=== PATIENT | female | born 1950 | race Hispanic/Latino ===

== ENCOUNTER 2020-09-19 17:23 | Emergency (ER) | payer MEDICARE ==
[~2020-09-19] VITALS: Ht 144.8 cm; Wt 52.2 kg
== END 2020-09-19 19:05 | disposition home or self-care (01) ==
LOC: FSED 17:45
DX: S83.92XA Sprain of unspecified site of left knee, initial encounter (principal); X50.1XXA Overexertion from prolonged static or awkward postures, initial encounter; Y92.008 Other place in unspecified non-institutional (private) residence as the place of occurrence of the external cause; I12.0 Hypertensive chronic kidney disease with stage 5 chronic kidney disease or end stage renal disease; E11.22 Type 2 diabetes mellitus with diabetic chronic kidney disease; N18.6 End stage renal disease; Z99.2 Dependence on renal dialysis; E78.5 Hyperlipidemia, unspecified
CPT/HCPCS: 99283

== ENCOUNTER 2020-10-17 16:02 | Inpatient (IN) | payer MEDICARE ==
[~2020-10-17] VITALS: Ht 144.8 cm; Wt 52.2 kg
[2020-10-17] MEDS ORDERED: ASPIRIN 81 MG CHEW TAB PO STA (16:16)
[2020-10-17 16:29] LABS: BASOPHILS % 0.4 % (0.0-1.0); EOSINOPHILS # (AUTO) 0.2 (0.0-0.4); EOSINOPHILS % 2.2 % (0.0-6.0); HEMATOCRIT 32.4 % (34.2-44.1); HEMOGLOBIN 10.4 g/dL (12.0-16.0); LYMPHOCYTES # (AUTO) 2.4 (1.0-3.2); LYMPHOCYTES % 35.4 % (18.0-39.1); MEAN CORPUSCULAR HEMOGLOBIN 29.7 pg (28-32); MEAN CORPUSCULAR HGB CONC 32.1 g/dL (31-35); MEAN CORPUSCULAR VOLUME 92.6 fL (81-99); MONOCYTES # (AUTO) 0.5 (0.2-0.8); MONOCYTES % 6.8 % (4.4-11.3); NEUTROPHILS # (AUTO) 3.7 (2.1-6.9); NEUTROPHILS % 55.1 % (38.7-80.0); PLATELET COUNT 195 x10e3/uL (140-360); RED CELL DISTRIBUTION WIDTH 14.3 % (11.7-14.4)
[2020-10-17] MEDS ORDERED: KETOROLAC TROMETHAMINE 30 MG/ML VIAL IM STA (16:35)
[2020-10-17 16:44] LABS: ALBUMIN/GLOBULIN RATIO 1.3 (0.8-2.0); ANION GAP 21.1 mmol/L (8-16); CALCIUM 9.4 mg/dL (8.4-10.2); CREATININE, SERUM 6.66 mg/dL (0.57-1.11); POTASSIUM 5.1 mmol/L (3.5-5.1)
[2020-10-17] MEDS ORDERED: ONDANSETRON HCL INJ 2MG/ML 2ML 2 MG/ML VIAL IV PRN (17:00)
[2020-10-17] MEDS ORDERED: KETOROLAC TROMETHAMINE 30 MG/ML VIAL IV ONE (17:45)
[2020-10-17] MEDS ORDERED: ISOSORBIDE MONO30 MG PO (19:48)
[2020-10-17] MEDS ORDERED: HYDRALAZINE HC100 MG PO (19:48)
[2020-10-17] MEDS ORDERED: CARVEDILOL12.5 MG PO (19:48)
[2020-10-17] MEDS ORDERED: SENSIPAR30 MG PO (19:48)
[2020-10-17] MEDS ORDERED: AMLODIPINE BESY10 MG PO (19:48)
[2020-10-17] MEDS ORDERED: ASPIRIN81 MG PO (19:48)
[2020-10-17] MEDS ORDERED: LEVOTHYROXINE50 MCG PO (19:48)
[2020-10-17] MEDS ORDERED: NITROGLYCERIN0.4 MG SL (19:48)
[2020-10-17 20:00] VITALS: BP 153/78
[2020-10-17] MEDS: FAMOTIDINE 20 MG/2 ML VIAL IV SCH (20:05)
[2020-10-18] VITALS (7 sets, daily range): BP systolic 104–177; BP diastolic 47–78
[2020-10-18 05:22] LABS: BASOPHILS % 0.3 % (0.0-1.0); EOSINOPHILS # (AUTO) 0.2 (0.0-0.4); EOSINOPHILS % 3.4 % (0.0-6.0); HEMATOCRIT 28.1 % (34.2-44.1); LYMPHOCYTES # (AUTO) 2.9 (1.0-3.2); LYMPHOCYTES % 49.7 % (18.0-39.1); MEAN CORPUSCULAR HEMOGLOBIN 29.9 pg (28-32); MEAN CORPUSCULAR VOLUME 93.4 fL (81-99); MONOCYTES # (AUTO) 0.4 (0.2-0.8); MONOCYTES % 7.1 % (4.4-11.3); NEUTROPHILS # (AUTO) 2.3 (2.1-6.9); NEUTROPHILS % 39.3 % (38.7-80.0); PLATELET COUNT 164 x10e3/uL (140-360); RED BLOOD COUNT 3.01 x10e6/uL (3.6-5.1); RED CELL DISTRIBUTION WIDTH 14.5 % (11.7-14.4)
[2020-10-18 06:04] LABS: CHOL/HDL RATIO 1.8 (3.0-3.6)
[2020-10-18 06:36] LABS: CREATINE KINASE MB 0.7 ng/mL (0-5.0)
[2020-10-18 06:59] LABS: ALBUMIN 3.2 g/dL (3.5-5.0); ALBUMIN/GLOBULIN RATIO 1.2 (0.8-2.0); ANION GAP 20.2 mmol/L (8-16); CALCIUM 8.7 mg/dL (8.4-10.2); CREATININE, SERUM 7.27 mg/dL (0.57-1.11)
[2020-10-18 07:22] LABS: POTASSIUM 6.2 mmol/L (3.5-5.1)
[2020-10-18] MEDS ORDERED: SOD POLYSTYRENE SULFONATE SUSP 15 GM/60 ML BTL PO ONE (07:45)
[2020-10-18] MEDS ORDERED: SODIUM CHLORIDE 0.9% 1000ML 2,000 ML ONE (08:06)
[2020-10-18] MEDS: FAMOTIDINE 20 MG/2 ML VIAL IV SCH ×2 (09:00→20:19)
[2020-10-18] MEDS: ASPIRIN 81 MG ENTERIC COATED PO SCH (09:00)
[2020-10-18] MEDS ORDERED: EPOETIN ALFA-EPBX 10,000 UNIT/ML VIAL SC SCH (13:30)
[2020-10-18] MEDS: HYDRALAZINE HCL 100 MG TABLET PO SCH ×2 (14:50→20:19)
[2020-10-18 15:38] LABS: CREATINE KINASE MB 0.7 ng/mL (0-5.0)
[2020-10-19] VITALS: BP 125/67
[2020-10-19 04:00] VITALS: BP 138/65
[2020-10-19] MEDS: HYDRALAZINE HCL 100 MG TABLET PO SCH ×2 (05:37→14:58)
[2020-10-19 06:24] LABS: BASOPHILS % 0.4 % (0.0-1.0); EOSINOPHILS # (AUTO) 0.2 (0.0-0.4); EOSINOPHILS % 3.3 % (0.0-6.0); HEMATOCRIT 28.3 % (34.2-44.1); HEMOGLOBIN 9.2 g/dL (12.0-16.0); LYMPHOCYTES # (AUTO) 2.6 (1.0-3.2); LYMPHOCYTES % 57.1 % (18.0-39.1); MEAN CORPUSCULAR HEMOGLOBIN 30.8 pg (28-32); MEAN CORPUSCULAR HGB CONC 32.5 g/dL (31-35); MEAN CORPUSCULAR VOLUME 94.6 fL (81-99); MONOCYTES # (AUTO) 0.3 (0.2-0.8); MONOCYTES % 7.3 % (4.4-11.3); NEUTROPHILS # (AUTO) 1.4 (2.1-6.9); NEUTROPHILS % 31.7 % (38.7-80.0); PLATELET COUNT 167 x10e3/uL (140-360); RED BLOOD COUNT 2.99 x10e6/uL (3.6-5.1); RED CELL DISTRIBUTION WIDTH 14.6 % (11.7-14.4)
[2020-10-19 06:50] LABS: ANION GAP 16.6 mmol/L (8-16); CALCIUM 8.8 mg/dL (8.4-10.2); CREATININE, SERUM 5.19 mg/dL (0.57-1.11); POTASSIUM 4.6 mmol/L (3.5-5.1)
[2020-10-19] MEDS ORDERED: LEVOTHYROXINE SODIUM 100 MCG TAB PO SCH (07:30)
[2020-10-19 08:18] VITALS: BP 138/65
[2020-10-19] MEDS ORDERED: ASPIRIN 81 MG CHEW TAB PO SCH (09:00)
[2020-10-19] MEDS ORDERED: AMLODIPINE BESYLATE 10 MG TAB PO SCH (09:00)
[2020-10-19] MEDS ORDERED: CARVEDILOL 12.5 MG TAB PO SCH (09:00)
[2020-10-19] MEDS ORDERED: CINACALCET 30 MG TAB PO SCH (09:00)
[2020-10-19] MEDS ORDERED: ISOSORBIDE MONONITRATE 30 MG TAB CR PO SCH (09:00)
[2020-10-19] MEDS: ASPIRIN 81 MG ENTERIC COATED PO SCH (09:00)
[2020-10-19 09:14] LABS: LYMPHOCYTES % (MANUAL) 17 % (19-48); MONOCYTES % (MANUAL) 6 % (3.4-9.0); NEUTROPHILS % (MANUAL) 73 % (40-74)
[2020-10-19 09:15] LABS: BAND NEUTROPHILS % (MANUAL) 4 %
[2020-10-19] MEDS: FAMOTIDINE 20 MG/2 ML VIAL IV SCH (12:05)
== END 2020-10-19 15:55 | disposition home or self-care (01) | DRG 682 ==
LOC: ER 16:15 → ERHOLD 18:31 → MED/SURG2 18:35 → OBSVTOIN 10-19 11:40
PROVIDERS: ADMIT Internal Medicine; ATTEND Internal Medicine
PROC: 5A1D70Z Performance of Urinary Filtration, Intermittent, Less than 6 Hours Per Day (ICD-10-PCS; principal; 2020-10-18)
DX: I12.0 Hypertensive chronic kidney disease with stage 5 chronic kidney disease or end stage renal disease (principal); N18.6 End stage renal disease; E11.22 Type 2 diabetes mellitus with diabetic chronic kidney disease; Z99.2 Dependence on renal dialysis; Z79.899 Other long term (current) drug therapy; E03.9 Hypothyroidism, unspecified; E87.5 Hyperkalemia; D63.1 Anemia in chronic kidney disease; Z20.822 Contact with and (suspected) exposure to COVID-19; E21.3 Hyperparathyroidism, unspecified; I25.10 Atherosclerotic heart disease of native coronary artery without angina pectoris
CPT/HCPCS: 36415; 71045; 80048; 80053; 80061; 82550; 82553; 82948; 83690; 84484; 85025; 86705; 86706; 87340; 90962; 93005; 93306; 99284; G0378; J1885; J7030; U0002

== ENCOUNTER 2022-10-25 16:37 | Emergency (ER) | payer OTHER, MEDICARE ==
[~2022-10-25] VITALS: Ht 147.3 cm; Wt 48.6 kg
[~2022-10-25 16:37] MED LIST: AMLODIPINE BESY10 MG PO; ASPIRIN81 MG PO; CARVEDILOL12.5 MG PO; HYDRALAZINE HC100 MG PO; ISOSORBIDE MONO30 MG PO; LEVOTHYROXINE50 MCG PO; NITROGLYCERIN0.4 MG SL; SENSIPAR30 MG PO
[2022-10-25] MEDS ORDERED: LOSARTAN POTAS100 MG PO (17:00)
[2022-10-25] MEDS ORDERED: METFORMIN HCL500 M1 PO (17:00)
[2022-10-25] MEDS ORDERED: VALCYTE450 MG PO (17:00)
[2022-10-25] MEDS ORDERED: ENVARSUS XR1 MG PO (17:00)
[2022-10-25] MEDS ORDERED: PREDNISONE5 MG PO (17:00)
[2022-10-25] MEDS ORDERED: JARDIANCE25 MG (17:00)
[2022-10-25] MEDS ORDERED: ACETAMINOPHEN 325 MG TAB PO ONE (17:45)
[2022-10-25] MEDS ORDERED: ACETAMINOPHEN 325 MG TAB ONE (18:02)
[2022-10-25] MEDS ORDERED: BACITRACIN ZINC 0.9GM TP ONE (18:02)
[2022-10-25] MEDS ORDERED: PENICILLIN V P500 MG PO (20:08)
[2022-10-25 20:30] VITALS: O2SAT 97
== END 2022-10-25 20:45 | disposition home or self-care (01) ==
LOC: FSED 16:42
DX: S02.831A Fracture of medial orbital wall, right side, initial encounter for closed fracture (principal); S01.511A Laceration without foreign body of lip, initial encounter; S60.221A Contusion of right hand, initial encounter; S80.01XA Contusion of right knee, initial encounter; W01.0XXA Fall on same level from slipping, tripping and stumbling without subsequent striking against object, initial encounter; Y93.01 Activity, walking, marching and hiking; Y92.89 Other specified places as the place of occurrence of the external cause; I12.0 Hypertensive chronic kidney disease with stage 5 chronic kidney disease or end stage renal disease; E11.22 Type 2 diabetes mellitus with diabetic chronic kidney disease; E11.65 Type 2 diabetes mellitus with hyperglycemia; N18.6 End stage renal disease; Z99.2 Dependence on renal dialysis; E03.9 Hypothyroidism, unspecified; E78.5 Hyperlipidemia, unspecified; Z94.0 Kidney transplant status
CPT/HCPCS: 36415; 70450; 70486; 72125; 82948; 99283

== ENCOUNTER 2022-12-04 10:27 | Emergency (ER) | payer MEDICARE ==
[~2022-12-04] VITALS: Ht 147.3 cm; Wt 45.8 kg
[~2022-12-04 10:27] MED LIST changes: +ENVARSUS XR1 MG PO; +JARDIANCE25 MG; +LOSARTAN POTAS100 MG PO; +METFORMIN HCL500 M1 PO; +PENICILLIN V P500 MG PO; +PREDNISONE5 MG PO; +VALCYTE450 MG PO
[2022-12-04] MEDS ORDERED: SODIUM CHLORIDE 0.9% 1000ML 1,000 ML IV SCH ×2 (11:30→14:15)
[2022-12-04] MEDS ORDERED: Vancomycin IV 1 GM in SODIUM CHLORIDE 0.9% 250ML 250 ML IV ONE (14:15)
[2022-12-04] MEDS ORDERED: CEFEPIME 2 GM in SODIUM CHLORIDE 0.9% 100 ML IV ONE (14:15)
[2022-12-04] MEDS ORDERED: Vancomycin IV 1 GM VIAL ONE (14:35)
[2022-12-04] MEDS ORDERED: SODIUM CHLORIDE 0.9% 250ML 250 ML ONE (14:35)
[2022-12-04] MEDS ORDERED: CEFEPIME HCL 1 GM VIAL ONE (14:36)
[2022-12-04] MEDS ORDERED: SODIUM CHLORIDE 0.9% 1000ML 1,000 ML ONE (15:53)
[2022-12-04 16:05] VITALS: O2SAT 96
== END 2022-12-04 17:00 | disposition other institution (70) ==
LOC: FSED 10:30
DX: R53.1 Weakness (principal); U07.1 COVID-19; R41.82 Altered mental status, unspecified; D72.829 Elevated white blood cell count, unspecified; E87.1 Hypo-osmolality and hyponatremia; N12 Tubulo-interstitial nephritis, not specified as acute or chronic; Z94.0 Kidney transplant status; R94.31 Abnormal electrocardiogram [ECG] [EKG]
CPT/HCPCS: 36415; 70450; 71250; 74176; 80048; 80076; 81003; 82550; 83605; 84484; 85025; 87040; 87071; 87086; 87186; 87205; 93005; 99284; J0692; J3370; J7030; J7050; U0002